=== PATIENT | female | born 1950 | race Caucasian/White ===

== ENCOUNTER → 2019-07-19 | Outpatient (CLI) | payer MEDICARE ==
--- NOTE | 2019-07-19 15:03 | Diagnostic Imaging Report ---
EXAM: Renal Ultrasound INDICATION: ^[id number] ^[id number] ^UTI COMPARISON: None TECHNIQUE: Transverse and longitudinal images of the kidneys and bladder were obtained. FINDINGS: Right Kidney: Length: 10.2 cm Appearance: Normal echogenicity. Collecting system: No hydronephrosis Stones: None Cyst/Mass: 3 mm echogenic focus at the midpole of the right kidney. Left Kidney: Length: 11.3 cm Appearance: Normal echogenicity. Collecting system: No hydronephrosis Stones: None Cyst/Mass: None Bladder: No mass or calculi. Bilateral ureteral jets visualized. Prevoid volume estimate of 421 cc. IMPRESSION: 3 mm echogenic focus at the right renal midpole does not demonstrate posterior acoustic shadowing and is equivocal for a small nonobstructive renal calculus. No hydronephrosis. Signed by: Anurag Minor MD on 07/19/2019 2:59 PM
--- NOTE | 2019-07-19 15:09 | Diagnostic Imaging Report ---
Exam: KUB - 2 views Indication: Urinary tract infection Comparison: Renal ultrasound of 07/19/2019 Findings: Subtle 3 mm calcific density overlying the right renal silhouette may represent a renal calculus. Nonobstructive bowel gas pattern. No free air. Mild degenerative changes of the visualized spine and both hip joints. Visualized lung bases appear clear. Impression: Subtle 3 mm calcific density may represent a right renal calculus. This would be supported by the finding on the renal ultrasound of the same day. No radiographically apparent left renal calculi. Signed by: Anurag Minor MD on 07/19/2019 3:06 PM
== END ==
LOC: US 13:44
PROVIDERS: ATTEND Urology
DX: N39.0 Urinary tract infection, site not specified (principal)
CPT/HCPCS: 74018; 76770

== ENCOUNTER → 2019-08-05 | Outpatient (CLI) | payer MEDICARE ==
--- NOTE | 2019-08-05 10:13 | Diagnostic Imaging Report ---
EXAMINATION: CT of the abdomen and pelvis without contrast. TECHNIQUE: Spiral CT images of the abdomen and pelvis were performed from the lung bases to the lesser trochanters. No intravenous contrast was given per renal stone protocol. Coronal and sagittal reformatted images were obtained. COMPARISON: Abdominal radiograph and renal ultrasound 07/19/2019 CLINICAL HISTORY:Suspected right renal calculus DISCUSSION: ABSENCE OF INTRAVENOUS CONTRAST DECREASES SENSITIVITY FOR DETECTION OF FOCAL LESIONS AND VASCULAR PATHOLOGY. ABDOMEN/PELVIS: LOWER THORAX: Unremarkable. HEPATOBILIARY:No focal hepatic lesions. No biliary ductal dilation. The gallbladder is normal. SPLEEN: No splenomegaly. PANCREAS: No focal masses or ductal dilatation. ADRENALS: No adrenal nodules. KIDNEYS/URETERS: No calculi are identified. Specifically, no right renal calculus is identified to correspond to the suspected sonographic and radiographic abnormality. No hydronephrosis. No focal renal mass lesion. PELVIC ORGANS/BLADDER: The urinary bladder is unremarkable. Uterus is neutral in position and appears normal for age. No adnexal mass. PERITONEUM/RETROPERITONEUM: No ascites. No pneumoperitoneum. LYMPH NODES: No pelvic sidewall, retroperitoneal, or mesenteric lymphadenopathy. VESSELS: Atherosclerotic calcification of the abdominal aorta and iliac arterial systems without aneurysmal dilatation. Otherwise limited evaluation in the absence of intravenous contrast. GI TRACT: The large bowel is notable for numerous diverticula along the course of the descending and sigmoid colon, without wall thickening or inflammation. The appendix is normal. No small bowel dilatation to suggest obstruction. BONES AND SOFT TISSUES: No focal soft tissue abnormalities. No osseous destructive lesions. Degenerative disc changes and facet arthropathy of the lower lumbar spine. Mild bilateral degenerative arthrosis of the hips. IMPRESSION: No CT evidence of urolithiasis. Specifically, no right renal calculus is identified to correspond to the sonographic and radiographic finding. The echogenic focus described on comparison ultrasound may have represented prominent renal sinus fat. Large bowel diverticulosis without evidence of diverticulitis. Atherosclerotic vascular disease. Signed by: Dr. vJ Jones M.D. on 08/05/2019 10:10 AM
== END ==
LOC: CT 08:51
PROVIDERS: ATTEND Urology
DX: N20.0 Calculus of kidney (principal)
CPT/HCPCS: 74176

== ENCOUNTER 2019-10-04 11:00 | Inpatient (IN) | payer MEDICARE ==
[2019-09-30 15:09] LABS: BASOPHILS % 0.3 % (0.0-1.0); EOSINOPHILS # (AUTO) 0.1 (0.0-0.4); EOSINOPHILS % 0.6 % (0.0-6.0); HEMATOCRIT 42.6 % (34.2-44.1); HEMOGLOBIN 13.8 g/dL (12.0-16.0); LYMPHOCYTES # (AUTO) 0.9 (1.0-3.2); LYMPHOCYTES % 8.8 % (18.0-39.1); MEAN CORPUSCULAR HEMOGLOBIN 29.5 pg (28-32); MEAN CORPUSCULAR HGB CONC 32.4 g/dL (31-35); MONOCYTES # (AUTO) 0.2 (0.2-0.8); MONOCYTES % 1.5 % (4.4-11.3); NEUTROPHILS # (AUTO) 8.9 (2.1-6.9); NEUTROPHILS % 88.3 % (38.7-80.0); PLATELET COUNT 320 x10e3/uL (140-360); RED BLOOD COUNT 4.68 x10e6/uL (3.6-5.1); RED CELL DISTRIBUTION WIDTH 12.4 % (11.7-14.4)
[2019-09-30 15:29] LABS: ALANINE AMINOTRANSFERASE 22 IU/L (0-55); ALBUMIN 4.2 g/dL (3.5-5.0); ALBUMIN/GLOBULIN RATIO 1.2 (0.8-2.0); ALKALINE PHOSPHATASE 109 IU/L (40-150); ANION GAP 16.8 mmol/L (8-16); BLOOD UREA NITROGEN 21 mg/dL (7-26); BUN/CREATININE RATIO 28 (6-25); CALCIUM 9.6 mg/dL (8.4-10.2); CARBON DIOXIDE 22 mmol/L (22-29); CHLORIDE 99 mmol/L (98-107); CREATININE, SERUM 0.75 mg/dL (0.57-1.11); EST GLOMERULAR FILTRATION RATE > 60 ML/MIN (60-); GLUCOSE 116 mg/dL (74-118); POTASSIUM 3.8 mmol/L (3.5-5.1); SODIUM 134 mmol/L (136-145)
--- NOTE | 2019-09-30 16:39 | Diagnostic Imaging Report ---
EXAMINATION: CHEST 2 VIEWS INDICATION: Pre-operative COMPARISON: None FINDINGS: LINES/TUBES:None LUNGS:The lungs are well-inflated. No focal consolidation or pulmonary edema. PLEURA:No pleural effusion or pneumothorax. MEDIASTINUM:The cardiomediastinal silhouette appears normal in size and shape. Atherosclerotic calcifications of the thoracic aorta. BONES/SOFT TISSUES:No acute osseous injury. ABDOMEN:No free air under the diaphragm. IMPRESSION: No focal pneumonia or pulmonary edema. Signed by: Anurag Minor MD on 09/30/2019 4:36 PM
[~2019-10-04] VITALS: Ht 157.5 cm; Wt 64.0 kg
[~2019-10-04 11:00] MED LIST: CO-ENZYME Q101 EACH PO; FISH OIL 1,0001 EAC2 PO; LOSARTAN POTAS100 MG PO; MAGNESIUM OXID400 MG PO; METAMUCIL FIBE3.4 GM PO
--- OUTSIDE RECORDS SUMMARY | 2019-10-04 11:02 | XMS REPORT ---
Author Author [facility] Address Unknown Phone Unavailable Care Team Providers Care Flexo Press Operator Name Role Phone IRENE HAYWARD Unavailable Unavailable Problems This patient has no known problems. Allergies, Adverse Reactions, Alerts This patient has no known allergies or adverse reactions. Medications This patient has no known medications. Results Test Description Test Time Test Comments Text Results Atomic Results Result Comments CHEST 2 VIEWS 2019-09-30 16:36:00 [place] [id number] [place] [id number] Patient Name: DIANNA RINCON MR #: [id number] : 1950 Age/Sex: 69/F Req #: [id number] Adm Physician: Ordered by: IRENE HAYWARD MD Report #: [id number] Location: OR Room/Bed: Procedure: [id number] DX/CHEST 2 VIEWS Exam Date: 09/30/19 Exam Time: 1500 REPORT STATUS: Signed EXAMINATION: CHEST 2 VIEWS INDICATION: Pre-operative COMPARISON: None FINDINGS: LINES/TUBES:None LUNGS:The lungs are well-inflated. No focal consolidation or pulmonary edema. PLEURA:No pleural effusion or pneumothorax. MEDIASTINUM:The cardiomediastinal silhouette appears normal in size and shape. Atherosclerotic calcifications of the thoracic aorta. BONES/SOFT TISSUES:No acute osseous injury. ABDOMEN:No free air under the diaphragm. IMPRESSION: No focal pneumonia or pulmonary edema. Signed by: Elias Minor MD on 09/30/2019 4:36 PM Dictated By: ELIAS MINOR MD 35 Transcribed By: SEBASTIAN on 09/30/191635 COPY TO: IRENE HAYWARD MD CT ABDOMEN/PELVIS WO 2019-08-05 10:02:00 [place] [address] Patient Name: DIANNA RINCON MR #: [id number] : 1950 Age/Sex: 68/F Req #: [id number] Adm Physician: Ordered by: IRENE HAYWARD MD Report #: [id number] Location: CT Room/Bed: Procedure: [id number] CT/CT ABDOMEN/PELVIS WO Exam Date: 08/05/19 Exam Time: 930 REPORT STATUS: Signed EXAMINATION: CT of the abdomen and pelvis without contr ast. TECHNIQUE: Spiral CT images of the abdomen and pelvis were performed from the lung bases to the lesser trochanters. No intravenous contrast was given per renal stone protocol. Coronal and sagittal reformatted images were obtained. COMPARISON: Abdominal radiograph and renal ultrasound 07/19/2019 CLINICAL HISTORY:Suspected right renal calculus DISCUSSION: ABSENCE OF INTRAVENOUS CONTRAST DECREASES SENSITIVITY FOR DETECTION OF FOCAL LESIONS AND VASCULAR PATHOLOGY. ABDOMEN/PELVIS: LOWER THORAX: Unremarkable. HEPATOBILIARY:No focal hepatic lesions. No biliary ductal dilation. The gallbladder is normal. SPLEEN: No splenomegaly. PANCREAS: No focal masses or ductal dilatation. ADRENALS: No adrenal nodules. KIDNEYS/URETERS: No calculi are identified. Specifically, no right renal calculus is identified to correspond to the suspected sonographic and radiographic abnormality. No hydronephrosis. No focal renal mass lesion. P ELVIC ORGANS/BLADDER: The urinary bladder is unremarkable. Uterus is neutral in position and appears normal for age. No adnexal mass. PERITONEUM/RETROPERITONEUM: No ascites. No pneumoperitoneum. LYMPH NODES: No pelvic sidewall, retroperitoneal, or mesenteric lymphadenopathy. VESSELS: Atherosclerotic calcification of the abdominal aorta and iliac arterial systems without aneurysmal dilatation. Otherwise limited evaluation in the absence of intravenous contrast. GI TRACT: The large bowel is notable for numerous diverticula along the course of the descending and sigmoid colon, without wall thickening or inflammation. The appendix is normal. No small bowel dilatation to suggest obstruction. BONES AND SOFT TISSUES: No focal soft tissue abnormalities. No osseous destructive lesions. Degenerative disc changes and facet arthropathy of the lower lumbar spine. Mild bilateral degenerative arthrosis of the hips. IMPRESSION: No CT evidence of urolithiasis. Specifically, no right renal calculus is identified to correspond to the sonographic and radiographic finding. The echogenic focus described on comparison ultrasound may have represented prominent renal sinus fat. Large bowel diverticulosis without evidence of diverticulitis. Atherosclerotic vascular disease. Signed by: Dr. Armond Nevarez M.D. on 08/05/2019 10:10 AM Dictated By: ARMOND NEVAREZ MD 1010 Transcribed By: SEBASTIAN on 08/05/19 1010 COPY TO: IRENE HAYWARD MD ABDOMEN-1VIEW (KUB) 2019-07-19 15:03:00 [place] [address] Patient Name: DIANNA RINCON MR #: [id number] : 1950 Age/Sex: 68/F Req #: [id number] Adm Physician: Ordered by: IRENE HAYWARD MD Report #: [id number] Location: US Room/Bed: Procedure: [id number] DX/ABDOMEN-1VIEW (KUB) Exam Date: Exam Time: REPORT STATUS: Signed Exam: KUB - 2 views Indication: Urinary tract infection Comp arison: Renal ultrasound of 07/19/2019 Findings: Subtle 3 mm calcific density overlying the right renal silhouette may represent a renal calculus. Nonobstructive bowel gas pattern. No free air. Mild degenerative changes of the visualized spine and both hip joints. Visualized lung bases appear clear. Impression: Subtle 3 mm calcific density may represent a right renal calculus. This would be supported by the finding on the renal ultrasound of the same day. No radiographically apparent left renal calculi. Signed by: Elias Minor MD on 07/19/2019 3:06 PM Dictated By: ELIAS MINOR MD 1507 Transcribed By: SEBASTIAN on 07/19/19 1509 COPY TO: IRENE HAYWARD MD US RENAL RETROPERITONEAL COMP 2019-07-19 14:57:00 [place] [address] Patient Name: DIANNA RINCON MR #: [id number] : 1950 Age/Sex: 68/F Req #: [id number] Adm Physician: Ordered by: IRENE HAYWARD MD Report #: [id number] Location: Room/Bed: Procedure: [id number] US/US RENAL RETROPERITONEAL COMP Exam Date: 07/19/19 Exam Time: 141 REPORT STATUS: Signed EXAM: Renal Ultrasound INDICATION: [id number] UTI COMPARISON: None TECHNIQUE: Transverse and longitudinal images of the kidneys and bladder were obtained. FINDINGS: Right Kidney: Length: 10.2 cm Appearance: Normal echogenicity. Collecting system: No hydronephrosis Stones: None Cyst/Mass: 3 mm echogenic focus at the midpole of the right kidney. Left Kidney: Length: 11.3 cm Appearance: Normal echogenicity. Collecting system: No hydronephrosis Stones: None Cyst/Mass: None Bladder: No mass or calculi. Bilateral ureteral jets visualized. Prevoid volume estimate of 421 cc. IMPRESSION: 3 mm echogenic focus at the right renal midpole does not demonstrate posterior acoustic shadowing and is equivocal for a small nonobstructive renal calculus. No hydronephrosis. Signed by: Elias Minor MD on 07/19/2019 2:59 PM Dictated By: ELIAS MINOR MD 58 Transcribed By: SEBASTIAN on 07/19/191458 COPY TO: IRENE HAYWARD MD
[2019-10-04] MEDS ORDERED: VANCOMYCIN 1GM/NS 250 ML 250 ML ONE (11:37)
[2019-10-04] MEDS ORDERED: GENTAMICIN 80MG/NS 100 ML 200 ML IV ONE (11:37)
[2019-10-04] MEDS ORDERED: PIPER-TAZ 3.375 GM 50 ML ONE (11:37)
[2019-10-04] MEDS ORDERED: INDIGOTINDISULFONATE SODIUM 8 MG/ML AMP IJ ONE (12:26)
[2019-10-04] MEDS ORDERED: BACITRACIN 50,000 UNIT VIAL ONE (12:27)
[2019-10-04] MEDS ORDERED: IOPAMIDOL 300MG/ML 50ML INFUS..BTL IV ONE (12:27)
[2019-10-04] MEDS ORDERED: BUPIVACAINE 0.5%/EPI 30 ML SDV INJ ONE (12:27)
[2019-10-04] MEDS ORDERED: SILVER SULFADIAZINE 50GM CREAM TOP ONE (14:26)
[2019-10-04] MEDS ORDERED: BACITRACIN ZINC 15 GM OINT ONE (14:34)
[2019-10-04] MEDS ORDERED: NALOXONE HCL INJ 0.4 MG/ML AMP IV PRN (14:45)
[2019-10-04] MEDS ORDERED: DIPHENHYDRAMINE HCL 25 MG CAP PO PRN (14:45)
[2019-10-04] MEDS ORDERED: MORPHINE SULFATE 1 MG/ML 30ML PCA IV PRN (14:45)
[2019-10-04] MEDS ORDERED: ONDANSETRON HCL INJ 2MG/ML 2ML 2 MG/ML VIAL IV PRN (14:45)
[2019-10-04] MEDS ORDERED: FENTANYL CITRATE/PF 100MCG/2 ML INJ ONE ×2 (15:32→18:51)
[2019-10-04] MEDS ORDERED: HYDRALAZINE HCL 20 MG/ML VIAL ONE (15:40)
[2019-10-04] MEDS: DOCUSATE SODIUM 100 MG CAP PO SCH (17:00)
--- NOTE | 2019-10-04 17:05 | NUR ---
RECEIVED REPORT FROM PORTAL ARCHITECT; PT COMING TO ROOM 210.
[2019-10-04] MEDS ORDERED: ONDANSETRON HCL INJ 2MG/ML 2ML 2 MG/ML VIAL ONE ×2 (17:13→18:31)
[2019-10-04 17:26] VITALS: BP 124/66
--- NOTE | 2019-10-04 17:26 | NUR ---
PT ARRIVED TO ROOM 210, PT AWAKE, ALERT, NO SIGNS OF DISTRESS.
--- NOTE | 2019-10-04 17:47 | Diagnostic Imaging Report ---
Exam: Bilateral retrograde pyeloureterogram Clinical history: Infection Total fluoroscopy time 14 seconds Total images 19 Findings: Contrast was introduced into bilateral renal collecting system in retrograde fashion. Radiologist was not present during the evaluation. There is no evidence of hydronephrosis or hydroureter. No intraluminal filling defects or stricture noted. Please refer to the operative report for further details. Signed by: Dr. Silvano Handley MD on 10/04/2019 5:44 PM
[2019-10-04] MEDS ORDERED: LOSARTAN POTASS25 MG PO (17:52)
[2019-10-04] MEDS ORDERED: HYDROCHLOROTHIA25 MG PO (17:52)
[2019-10-04] MEDS ORDERED: ACETAMINOPHEN 1000 MG/100 ML IV PRN (18:00)
[2019-10-04] MEDS: D5.45%NS/KCL 20MEQ 1,000 ML IV SCH (18:02)
[2019-10-04] MEDS ORDERED: SEVOFLURANE INHAL SOLN 250 ML PEN BTL ONE (18:31)
[2019-10-04] MEDS ORDERED: DEXAMETHASONE SOD PHOS INJ 4 MG/ML VIAL ONE (18:31)
[2019-10-04] MEDS ORDERED: LIDOCAINE HCL 2% LOCAL INJ 5 ML SDV VIAL INJ ONE (18:31)
[2019-10-04] MEDS ORDERED: PROPOFOL IV EMULSION 10 MG/ML 20 ML VIAL ONE (18:31)
--- NOTE | 2019-10-04 19:14 | NUR ---
BEDSIDE SHIFT REPORT RECEIVED FROM DEBORAH RN, PATIENT SEEN LYING COMFORTABLY IN BED, NO DISTRESS, SURROUNDED BY MULTIPLE FAMILY MEMBERS, RESP EVEN AND UNLABORED, SKIN WARM DRY, CALL LIGHT WITHIN REACH, AGUILLON IN PLACE, DO NOT REMOVED PER MD ORDER,
--- NOTE | 2019-10-04 19:53 | NUR ---
PATIENT REQUESTING MD MAINOR KNOX PAGED FOR NPO CONFIRMATION
[2019-10-04 20:00] VITALS: BP 116/66
[2019-10-04] MEDS: PIPER-TAZ 3.375 GM 50 ML IV SCH (20:07)
--- NOTE | 2019-10-04 20:10 | NUR ---
MD HAYWARD CALLED BACK, DIET ORDER CHANGED TO CLEAR LIQUID, PATIENT MADE AWARE, CLEAR LIQUIDS GIVEN, ADVISED TO TAKE IT SLOW FOR FIRST FEW HOURS, STOMACH COMING OF REST, DRINKING TO FAST MAY CAUSE NAUSEA, CALL LIGHT WITHIN REACH, WATER AND ICE WITHIN REACH
[2019-10-04 21:27] VITALS: BP 116/66
[2019-10-04 21:28] VITALS: BP 116/66
--- NOTE | 2019-10-04 22:00 | NUR ---
PATIENT REPORTED EPISODE OF NAUSEA, NO VOMITING, ADVISED TO DECREASE WATER AND BROTH INTAKE FOR NEXT HOUR, TO PREVENT VOMITING, IV ZOFRAN WAS GIVEN AT 2030 TO PREVENT NAUSEA, PATIENT ADVISED WHEN NEXT PRN ANTIEMETIC IS DUE, OKAY WITH THAT
[2019-10-05] VITALS (12 sets, daily range): BP systolic 110–155; BP diastolic 67–88
--- NOTE | 2019-10-05 02:34 | NUR ---
PATIENT DENIES NAUSEA AND VOMITING AT THIS TIME, TOLERATING CLEAR LIQUID DIET WELL, HOURLY ROUNDING COMPLETED PER PROTOCOL, SAFETY MAINTAINED, LOWER ABDOMEN TWO SURGICAL INCISION NOTED, SMALL DARK RED BLOODY DRAINAGE SEEN ON DRESSING, CARE GIVEN DRESSING CHANGED;C/D/I
[2019-10-05] MEDS: D5.45%NS/KCL 20MEQ 1,000 ML IV SCH ×2 (05:22→21:25)
[2019-10-05] MEDS: PIPER-TAZ 3.375 GM 50 ML IV SCH ×3 (05:22→21:26)
[2019-10-05 05:37] LABS: BASOPHILS % 0.1 % (0.0-1.0); HEMATOCRIT 35.7 % (34.2-44.1); HEMOGLOBIN 11.6 g/dL (12.0-16.0); LYMPHOCYTES # (AUTO) 0.9 (1.0-3.2); MEAN CORPUSCULAR HEMOGLOBIN 29.5 pg (28-32); MEAN CORPUSCULAR HGB CONC 32.5 g/dL (31-35); MEAN CORPUSCULAR VOLUME 90.8 fL (81-99); MONOCYTES # (AUTO) 0.8 (0.2-0.8); MONOCYTES % 5.5 % (4.4-11.3); NEUTROPHILS # (AUTO) 12.7 (2.1-6.9); NEUTROPHILS % 87.8 % (38.7-80.0); PLATELET COUNT 306 x10e3/uL (140-360); RED BLOOD COUNT 3.93 x10e6/uL (3.6-5.1); RED CELL DISTRIBUTION WIDTH 12.6 % (11.7-14.4)
[2019-10-05 05:57] LABS: ANION GAP 12.1 mmol/L (8-16); BLOOD UREA NITROGEN 9 mg/dL (7-26); BUN/CREATININE RATIO 14 (6-25); CALCIUM 8.5 mg/dL (8.4-10.2); CARBON DIOXIDE 23 mmol/L (22-29); CHLORIDE 104 mmol/L (98-107); CREATININE, SERUM 0.64 mg/dL (0.57-1.11); EST GLOMERULAR FILTRATION RATE > 60 ML/MIN (60-); GLUCOSE 145 mg/dL (74-118); POTASSIUM 4.1 mmol/L (3.5-5.1); SODIUM 135 mmol/L (136-145)
--- NOTE | 2019-10-05 06:24 | NUR ---
H&P cc: cystocele repair HPI: 69yoF, PCP ?, developed cystocele, presented for elective surgical mgmt. Underwent procedure. Now recovering. PMH: HTN, cystocele PSHx: tubal ligation, tonsillectomy Allergies; see emr FH/SH; ; no cigs Meds; see MAR ROS; no f/c/S/cp/sob/skin rash/leg pain/focal limbweakness v/s revd PE tired appearing anicteric ns1s2 mod bs soft nd; suprapubic region with dressing; rain in place no e/t skin dry n. affect labs/meds; revd A/P: 69yoF Cystocele- s/p repair HTN- home meds Overweight- check hab1c/lipids BMI 25.8- as above Hyperglycemia- check hba1c/lipids Prop: scd dispo; per urology. Matt Aguayo MD, PhD.
[2019-10-05] MEDS ORDERED: ACETAMINOPHEN 325 MG TAB PO PRN (06:30)
[2019-10-05] MEDS ORDERED: SENNOSIDES 8.6 MG TAB PO PRN (06:30)
[2019-10-05] MEDS ORDERED: ONDANSETRON HCL INJ 2MG/ML 2ML 2 MG/ML VIAL IV PRN (06:30)
[2019-10-05 06:51] LABS: CHOL/HDL RATIO 4.4 (3.0-3.6)
[2019-10-05] MEDS ORDERED: BISACODYL 10 MG SUPP PR ONE (08:30)
[2019-10-05] MEDS: LOSARTAN POTASSIUM 25 MG TAB PO SCH (09:19)
[2019-10-05] MEDS: DOCUSATE SODIUM 100 MG CAP PO SCH ×2 (09:19→17:00)
[2019-10-05] MEDS: ACETAMINOPHEN/CODEINE 300MG - 30MG TAB PO PRN ×3 (11:43→21:44)
--- NOTE | 2019-10-05 19:20 | NUR ---
received report from day nurse. bedside shift report is complete. patient is resting comfortably in the bed. bed is in the lowest position and call saenz is within reach. will continue to monitor patient.
[2019-10-05] MEDS ORDERED: ZOLPIDEM TARTRATE 5 MG TAB PO PRN (21:00)
--- NOTE | 2019-10-05 23:27 | NUR ---
Received report from nurse. Walking rounds completed.
[2019-10-06] VITALS: BP 116/74
--- NOTE | 2019-10-06 00:22 | NUR ---
Dressing wet to abdomin from shower. Dressing removed and area cleaned. Applied clean, dry dressing. Patient tolerated well.
[2019-10-06 04:00] VITALS: BP 150/85
[2019-10-06] MEDS: PIPER-TAZ 3.375 GM 50 ML IV SCH ×2 (05:02→14:00)
[2019-10-06 05:25] LABS: BASOPHILS % 0.3 % (0.0-1.0); EOSINOPHILS # (AUTO) 0.1 (0.0-0.4); EOSINOPHILS % 1.6 % (0.0-6.0); HEMATOCRIT 35.5 % (34.2-44.1); HEMOGLOBIN 11.3 g/dL (12.0-16.0); LYMPHOCYTES # (AUTO) 1.7 (1.0-3.2); LYMPHOCYTES % 25.1 % (18.0-39.1); MEAN CORPUSCULAR HEMOGLOBIN 29.5 pg (28-32); MEAN CORPUSCULAR HGB CONC 31.8 g/dL (31-35); MEAN CORPUSCULAR VOLUME 92.7 fL (81-99); MONOCYTES # (AUTO) 0.6 (0.2-0.8); MONOCYTES % 9.3 % (4.4-11.3); NEUTROPHILS # (AUTO) 4.3 (2.1-6.9); NEUTROPHILS % 63.3 % (38.7-80.0); PLATELET COUNT 250 x10e3/uL (140-360); RED BLOOD COUNT 3.83 x10e6/uL (3.6-5.1)
[2019-10-06 05:44] LABS: BLOOD UREA NITROGEN 7 mg/dL (7-26); BUN/CREATININE RATIO 11 (6-25); CALCIUM 8.6 mg/dL (8.4-10.2); CARBON DIOXIDE 24 mmol/L (22-29); CHLORIDE 106 mmol/L (98-107); CREATININE, SERUM 0.63 mg/dL (0.57-1.11); EST GLOMERULAR FILTRATION RATE > 60 ML/MIN (60-); GLUCOSE 100 mg/dL (74-118); SODIUM 139 mmol/L (136-145)
[2019-10-06] MEDS: ACETAMINOPHEN/CODEINE 300MG - 30MG TAB PO PRN (06:22)
--- NOTE | 2019-10-06 06:36 | NUR ---
Patient wants Rain out. Tyler ROBERT. S/W Dr Alexandra regarding d/c rain. states not to d/c rain. PT informed. Patient request pain pill and meds for constipation. Meds given as ordered by . Continue monitor.
--- NOTE | 2019-10-06 06:49 | NUR ---
IM- progress note O/N see below ROS; no f/c/S/cp/sob/skin rash/leg pain/focal limbweakness v/s revd PE tired appearing anicteric ns1s2 mod bs soft nd; suprapubic region with dressing; rain in place no e/t skin dry n. affect labs/meds; revd A/P: 69yoF Cystocele- s/p repair HTN- home meds Overweight- check hab1c/lipids BMI 25.8- as above Hyperglycemia- check hba1c/lipids Prop: scd dispo; per urology. 10/06 Hba1c/LDL 5.6/132; d/c later Matt Aguayo MD, PhD.
--- NOTE | 2019-10-06 07:05 | NUR ---
RCD PT AT BED PT IS ALERT AND ORIENTED PT RESTING ON BED IV PATENT BY SALINE FLUSH AGUILLON DRAINING BY GRAVITY BONITA COLOR URINE BED LOW AND LOCKED CALL LIGHT IN REACH
[2019-10-06 08:00] VITALS: BP 145/86
[2019-10-06 08:34] VITALS: BP 145/86
[2019-10-06] MEDS: D5.45%NS/KCL 20MEQ 1,000 ML IV SCH ×2 (08:52→13:32)
[2019-10-06] MEDS: DOCUSATE SODIUM 100 MG CAP PO SCH ×2 (09:00→17:00)
[2019-10-06] MEDS: LOSARTAN POTASSIUM 25 MG TAB PO SCH (09:00)
--- NOTE | 2019-10-06 10:00 | NUR ---
PT C/O ACID REFLEX PAGED AND NOTIFIED DR RODRIGUEZ GOT NEW ORDERS
[2019-10-06] MEDS ORDERED: PANTOPRAZOLE SOD 40 MG TABEC PO SCH (11:15)
[2019-10-06 11:59] VITALS: BP 168/95
--- NOTE | 2019-10-06 12:50 | NUR ---
PT REQUESTED TO SOMETHING FOR CONSTIPATION PAGED AND NOTIFIED DR HAYWARD GOT NEW ORDERS
[2019-10-06] MEDS ORDERED: BISACODYL 10 MG SUPP PR NR (13:00)
--- NOTE | 2019-10-06 13:30 | NUR ---
DC AGUILLON BY ORDER 100 ML CLEAR URINE IN THE BAG
--- NOTE | 2019-10-06 14:30 | NUR ---
PT VOIDED AFTER AGUILLON
[2019-10-06 15:50] VITALS: BP 143/66
--- NOTE | 2019-10-06 16:51 | NUR ---
BLADDER SCAN DONE ONLY 57 ML URINE IN THE BAG Addendum: 10/06/19 at 1652 by Susy Giron RN BLADDER
[2019-10-06] MEDS ORDERED: TYLENOL # 31 EA PO (16:53)
[2019-10-06] MEDS ORDERED: COLACE100 MG PO (16:54)
[2019-10-06] MEDS ORDERED: LEVAQUIN500 MG PO (16:54)
--- NOTE | 2019-10-06 17:00 | NUR ---
PAGED AND NOTIFIED DR JENNIFER DIAZ TO DR HAYWARD PT CAN GO HOME IS OK WITH YOU HE SAID PUT THE PT IN OBSERVATION STATUS AND DISCHARGE THE PT
--- NOTE | 2019-10-06 17:50 | NUR ---
PT WENT HOME IN SAFE CONDITION WITH HER DAUGHTER
--- NOTE | 2019-10-07 06:34 | NUR ---
D/C summary Principal Dx: Cystocele- s/p repair Hyperglycemia withou diabetes Secondary Dx HTN- home meds Overweight- check hab1c/lipids BMI 25.8- as above Prop: scd dispo; per urology. 10/06 Hba1c/LDL 5.6/132; d/c later d/c home f/u pcp 1 week and urology as directed stable d/c>35mins Matt Aguayo MD, PhD.
[2019-10-07] MEDS ORDERED: PANTOPRAZOLE SOD 40 MG TABEC PO SCH (07:30)
--- NOTE | 2019-11-17 01:32 | Operative Report ---
DATE OF PROCEDURE: 10/04/2019 SURGEON: Bob Alexandra MD PREOPERATIVE DIAGNOSES: 1. Stress incontinence. 2. Grade 4 severe cystocele. 3. Urinary tract infections. POSTOPERATIVE DIAGNOSES: 1. Stress incontinence. 2. Grade 4 severe cystocele. 3. Urinary tract infections. OPERATION PERFORMED: 1. Repair of large cystocele. 2. Utilization of a graft in cystocele repair. 3. Pubovaginal sling utilizing homograft. 4. Cystourethroscopy with bilateral ureteral catheterization and retrograde ureteropyelography. 5. Interpretation of retrograde ureteropyelography. MIXER RUNNER SURGEON: Zo Alexandra MD ANESTHESIA: General. COMPLICATIONS: None. CLINICAL SUMMARY: Meseret Navarro is a 69-year-old woman with severe grade 4 cystocele, stress incontinence, urinary tract infections and was brought for the above procedures. She is aware of the risks of bleeding, infection, injury to adjacent structures, need for additional procedures, and elected to proceed. The patient still has her uterus and does have a grade 2 uterine prolapse and we hope that the cystocele repair will prevent the need for additional therapy. It is a possibility and the patient will be made well aware that future procedures will be warranted such as an abdominal hysterectomy in combination with a mesh sacrocolpopexy. OPERATIVE PROCEDURE IN DETAIL: Informed consent was verified. Meseret Navarro was properly identified, taken to the operating room, placed on the operating table in supine position. Anesthesia was uneventfully begun. The patient was then carefully gently repositioned in the dorsal lithotomy position with all pressure points were padded. Her abdomen, genitalia and perineum were shaved, prepared, and draped in usual sterile fashion. Labial stay sutures were utilized. Marcaine with epinephrine was utilized to infiltrate submucosally in the midline of the anterior vaginal wall as well as the remainder of the anterior vaginal wall. A midline incision was then made. Bilateral vaginal wall flaps were developed. We then extended the dissection to the cephalad most extent of the anterior vaginal wall as well as to the distal urethra. We then pierced the endopelvic fascia bilaterally taking care to stay as laterally as possible to avoid injuring the periurethral neurovascular complexes. We then proceeded with plicating type of cystocele repair by using heavy Vicryl suture in interrupted fashion and approximated the cut edges of the endopelvic fascia from the bladder neck to the cephalad most extent of the vaginal dissection. Berrios catheter was then placed and drained the bladder. Fascia marifer graft was then cut to shape and hydrated an antibiotic irrigant. We then placed a heavy PDS suture in helical fashion through each end of the graft. We then utilized [place] needle system throughout the posterior surface of the pubis and pierced through the anterior abdominal wall. This was done first on the left hand side and then the right-hand side. The needle was then brought through, dragging along with one pair of PDS suture strands. The graft was then secured to support the cystocele repair utilizing interrupted chromic sutures. We then took the graft and extended it to the distal most extent of the urethra and secured it in place with a chromic suture thus performing a pubovaginal sling. The lateral suture passer was then utilized to take one strand of each PDS suture and tunnel it suprapubically subcutaneously to join its contralateral counterpart. The sutures were then tied down to the level of the patient's skin as the knot was allowed to fall deep within the suprapubic fat pad thus ensuring a non-lifting, non-constricting sling. Copious irrigation of all incisions was performed. Marcaine with epinephrine was infiltrated circumferentially to the stab wounds in the suprapubic area. Suprapubic incisions were approximated with Monocryl suture in interrupted subcuticular fashion. The vaginal wall was trimmed minimally and approximated with heavy Vicryl suture in running fashion. The Berrios catheter was removed. Cystoscopy was performed. Panendoscopy revealed no suspicious mucosal lesions. There were no tumors, no stones and no diverticula. Trabeculations were noted. An 8-Swedish catheter was used to cannulate each ureter and retrograde ureteropyelography performed. Interpretation of retrograde ureteropyelography contrast was instilled in retrograde fashion bilaterally. There were no tumors. There were no stones. There were no diverticula. Unobstructed drainage was observed bilaterally fluoroscopically. The Berrios catheter was replaced. A vaginal packing was placed. Labial stay sutures were removed. The patient was then uneventfully reversed from anesthesia and taken to recovery room in stable condition. There were no complications of the procedure. The patient tolerated the procedure well. Sponge, needle, and instrument counts were correct x2 at the end of the case. For estimated blood loss, please see the anesthetic record. We will plan to proceed with routine postoperative care and of course lifelong urological followup. We will be especially aware of the potential for needing a sacral colpopexy in the future. MD BIN Nolasco/VICKY /[id number]
== END 2019-10-06 17:50 | disposition home or self-care (01) | DRG 748 ==
LOC: OR 11:00 → PACU V 14:45 → MED/SURG2 17:30
PROVIDERS: ADMIT Internal Medicine; ATTEND Internal Medicine
PROC: BT141ZZ Fluoroscopy of Kidneys, Ureters and Bladder using Low Osmolar Contrast (ICD-10-PCS; 2019-10-04)
PROC: 0JUC0JZ Supplement of Pelvic Region Subcutaneous Tissue and Fascia with Synthetic Substitute, Open Approach (ICD-10-PCS; principal; 2019-10-04 13:00)
PROC: 0TSD0ZZ Reposition Urethra, Open Approach (ICD-10-PCS; 2019-10-04 13:00)
DX: N81.10 Cystocele, unspecified (principal); N39.0 Urinary tract infection, site not specified; N39.3 Stress incontinence (female) (male); I10 Essential (primary) hypertension; E66.3 Overweight; R73.9 Hyperglycemia, unspecified; Z88.5 Allergy status to narcotic agent; Z88.2 Allergy status to sulfonamides; Z68.25 Body mass index [BMI] 25.0-25.9, adult; E78.00 Pure hypercholesterolemia, unspecified; N32.81 Overactive bladder; N81.89 Other female genital prolapse
CPT/HCPCS: 36415; 71046; 74420; 80048; 80053; 80061; 82948; 83036; 85025; 93005; C1752; C1758; J0360; J1100; J1580; J2001; J2270; J2405; J2543; J3010; J3370

== ENCOUNTER 2019-10-22 19:00 | Emergency (ER) | payer MEDICARE ==
[~2019-10-22] VITALS: Ht 157.5 cm; Wt 64.0 kg
[~2019-10-22 19:00] MED LIST changes: +COLACE100 MG PO; +HYDROCHLOROTHIA25 MG PO; +LEVAQUIN500 MG PO; +LOSARTAN POTASS25 MG PO; +TYLENOL # 31 EA PO
[2019-10-22 21:19] LABS: BASOPHILS % 0.4 % (0.0-1.0); EOSINOPHILS # (AUTO) 0.2 (0.0-0.4); EOSINOPHILS % 2.4 % (0.0-6.0); HEMATOCRIT 37.9 % (34.2-44.1); HEMOGLOBIN 12.2 g/dL (12.0-16.0); LYMPHOCYTES # (AUTO) 1.4 (1.0-3.2); LYMPHOCYTES % 16.6 % (18.0-39.1); MEAN CORPUSCULAR HEMOGLOBIN 29.3 pg (28-32); MEAN CORPUSCULAR HGB CONC 32.2 g/dL (31-35); MEAN CORPUSCULAR VOLUME 90.9 fL (81-99); MONOCYTES # (AUTO) 0.9 (0.2-0.8); MONOCYTES % 11.3 % (4.4-11.3); NEUTROPHILS # (AUTO) 5.7 (2.1-6.9); NEUTROPHILS % 68.9 % (38.7-80.0); PLATELET COUNT 291 x10e3/uL (140-360); RED BLOOD COUNT 4.17 x10e6/uL (3.6-5.1); RED CELL DISTRIBUTION WIDTH 12.9 % (11.7-14.4)
[2019-10-22 21:22] LABS: CLARITY,URINE SL CLOUDY (CLEAR); COLOR,URINE YELLOW (YELLOW); KETONES,URINE TRACE (NEGATIVE); LEUKOCYTE ESTERASE ,URINE TRACE (NEGATIVE); NITRITE,URINE NEGATIVE (NEGATIVE); PROTEIN,URINE DIPSTICK NEGATIVE (NEGATIVE)
[2019-10-22 21:23] LABS: BILIRUBIN,URINE NEGATIVE (NEGATIVE); URINE UROBILINOGEN 0.2 mg/dL (0.2 - 1)
[2019-10-22 21:30] LABS: BACTERIA,URINE MODERATE /HPF; EPITHELIAL CELLS,URINE FEW /LPF; RBC,URINE 0-5 /HPF (0-5)
[2019-10-22 21:34] LABS: ALANINE AMINOTRANSFERASE 18 IU/L (0-55); ALBUMIN 3.8 g/dL (3.5-5.0); ALBUMIN/GLOBULIN RATIO 1.3 (0.8-2.0); ALKALINE PHOSPHATASE 89 IU/L (40-150); ANION GAP 13.4 mmol/L (8-16); BLOOD UREA NITROGEN 12 mg/dL (7-26); BUN/CREATININE RATIO 18 (6-25); CALCIUM 9.5 mg/dL (8.4-10.2); CARBON DIOXIDE 25 mmol/L (22-29); CHLORIDE 100 mmol/L (98-107); CREATININE, SERUM 0.66 mg/dL (0.57-1.11); EST GLOMERULAR FILTRATION RATE > 60 ML/MIN (60-); GLUCOSE 114 mg/dL (74-118); POTASSIUM 3.4 mmol/L (3.5-5.1); SODIUM 135 mmol/L (136-145)
[2019-10-22 23:09] VITALS: BP 141/80
== END 2019-10-22 23:11 | disposition home or self-care (01) ==
LOC: ER 19:00
DX: L24.5 Irritant contact dermatitis due to other chemical products (principal)
CPT/HCPCS: 36415; 80053; 81001; 85025; 99284

== ENCOUNTER → 2020-11-10 | Outpatient (CLI) | payer MEDICARE | LOC: US 08:43 | PROVIDERS: ATTEND Urology | DX: N32.81 Overactive bladder (principal) | CPT/HCPCS: 76770; 76857 ==